=== PATIENT | female | born 2000 | race Caucasian/White ===

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

== ENCOUNTER 2022-09-23 16:48 | Observation (INO) | payer SELFPAY ==
[2022-09-23] MEDS ORDERED: Lidocaine 1% w/Epinephrine 1:100K 20 ML VIAL ONE (17:13)
[2022-09-23] MEDS ORDERED: Benzocaine 20% Spray 60 ML CAN ONE (17:13)
[2022-09-23] MEDS ORDERED: Morphine 4 MG/ML VIAL ONE (17:59)
[2022-09-23] MEDS ORDERED: Ketorolac Tromethamine 30 MG/ML VIAL ONE (18:03)
[2022-09-23] MEDS ORDERED: Dexamethasone 10 MG/ML VIAL ONE (18:18)
[2022-09-23] MEDS ORDERED: Ondansetron ODT 4 MG TAB PO PRN (19:32)
[2022-09-23] MEDS ORDERED: Ondansetron PF 4 MG/2 ML Vial IVP PRN (19:32)
[2022-09-23 22:38] VITALS: BMI 19.9
[2022-09-23] MEDS: Morphine 2 MG/ML VIAL SLOW IVP PRN (22:53)
[2022-09-23] MEDS: Sodium Chloride 0.9% 1,000 ML IV SCH (22:54)
[2022-09-24] MEDS: Ampicillin/Sulbactam 3 GM in Sodium Chloride 0.9% 100 ML IVPB SCH ×3 (01:30→12:00)
[2022-09-24] MEDS: Sodium Chloride 0.9% 1,000 ML IV SCH (03:21)
[2022-09-24] MEDS: Ketorolac Tromethamine 30 MG/ML VIAL IVP PRN ×2 (03:22→10:46)
[2022-09-24 06:06] LABS: #Lymphocytes 1.1 thou/uL (1.20-3.40); #Monocytes 0.7 thou/uL (0.11-0.59); #Neutrophils 9.5 thou/uL (1.40-6.50); %Eosinophils 0.1 % (0.0-10.0); %Lymphocytes 9.5 % (28.0-48.0); %Monocytes 6.3 % (0.0-4.0); %Neutrophils 84.1 % (31.0-61.0); Hemoglobin 13.5 g/dL (12.0-16.0); Mean Corpuscular HGB CONC 34.6 g/dL (32.0-36.0); Mean Corpuscular Hemoglobin 32.6 pg (25.0-35.0); Mean Corpuscular Volume 94.2 fl (78.0-98.0); Mean Platelet Volume 7.6 fL (7.4-10.4); Platelet Count 305 10x3/uL (130-400); RBC Distribution Width 11.2 % (11.5-14.5); Red Blood Cell (RBC) Count 4.14 mill/uL (4.00-5.20); White Blood Cell (WBC) Count 11.3 10x3/uL (4.8-10.8)
[2022-09-24 06:38] LABS: ALT (SGPT) 12 U/L (8-55); AST (SGOT) 10 U/L (5-34); Albumin 2.8 g/dL (3.5-5.0); Alkaline Phosphatase 59 U/L (40-100); Anion Gap 10 mmol/L (10-20); BUN (Urea Nitrogen) 9 mg/dL (7.0-18.7); Bilirubin, Total 0.2 mg/dL (0.2-1.2); Calc. Creatinine Clearance 119 mL/min (70-130); Calcium 8.5 mg/dL (7.8-10.44); Carbon Dioxide 24 mmol/L (22-29); Chloride 106 mmol/L (98-107); Estimated GFR 134; Globulin 3.4 g/dL (2.4-3.5); Glucose 202 mg/dL (70-105); Protein, Total 6.2 g/dL (6.0-8.3); Sodium 136 mmol/L (136-145)
[2022-09-24] MEDS ORDERED: Dexamethasone 10 MG in Sodium Chloride 0.9% 50 ML IVPB SCH (09:00)
[2022-09-24] MEDS ORDERED: Dexamethasone 4 mg/ml Vial SLOW IVP SCH ×2 (10:00→12:30)
[2022-09-24] MEDS: Morphine 2 MG/ML VIAL SLOW IVP PRN (12:06)
[2022-09-24] MEDS ORDERED: oxyCODONE 5 MG TAB PO PRN (12:13)
[2022-09-24 12:14] VITALS: BP 106/71; TEMP 98
[2022-09-24] MEDS ORDERED: Dexamethasone 10 MG/ML VIAL SLOW IVP SCH ×2 (12:15→13:30)
[2022-09-25] MEDS ORDERED: Dexamethasone 4 mg/ml Vial SLOW IVP SCH (09:00)
== END 2022-09-24 14:00 | disposition home or self-care (01) ==
LOC: ERS 16:48 → SURG B 19:04
PROVIDERS: ADMIT Family Medicine; ATTEND Family Medicine
PROC: 0C9PXZZ Drainage of Tonsils, External Approach (ICD-10-PCS; principal; 2022-09-23)
DX: J36 Peritonsillar abscess (principal); F17.210 Nicotine dependence, cigarettes, uncomplicated; Z91.51 Personal history of suicidal behavior
CPT/HCPCS: 36415; 80053; 85025; 96374; 96375; 96376; G0378; J0295; J1100; J1885; J2270; J2272; J3490; J7050